=== PATIENT | female | born 1990 | race Two or more races ===

== ENCOUNTER 2025-06-18 13:43 | Emergency (ER) | payer OTHER ==
[~2025-06-18] VITALS: Ht 172.7 cm; Wt 83.9 kg
[~2025-06-18 13:43] MED LIST: ADULT LOW DOSE81 M1; FOLIC ACID20 MG PO
[2025-06-18 15:21] VITALS: BP 107/71; O2SAT 98
[2025-06-18] MEDS ORDERED: 0.9 % SODIUM CHLORIDE 1,000 ML IV STA (15:45)
[2025-06-18] MEDS ORDERED: FAMOTIDINE/PF 20 MG/2 ML VIAL IV STA (15:46)
[2025-06-18] MEDS ORDERED: ONDANSETRON HCL 2 MG/ML VIAL IV STA (15:46)
[2025-06-18] MEDS ORDERED: DEXAMETHASONE SODIUM PHOSPHATE 4 MG/ML VIAL IV ONE (16:00)
[2025-06-18] MEDS ORDERED: ONDANSETRON HCL 2 MG/ML VIAL ONE (16:37)
[2025-06-18] MEDS ORDERED: DEXAMETHASONE SODIUM PHOSPHATE 4 MG/ML VIAL ONE (16:37)
[2025-06-18] MEDS ORDERED: FAMOTIDINE/PF 20 MG/2 ML VIAL ONE (16:37)
[2025-06-18 17:28] LABS: BASO % 0.3 % (0.1-1.2); EOS # 0.02 (0.04-0.54); EOS % 0.3 % (0.7-7.0); LYMPH # 1.09 (1.18-3.74); LYMPH % 16.4 % (19.3-53.1); MEAN PLATELET VOLUME 9.80 fl (9.4-12.4); MONO # 0.29 (0.24-0.82); MONO % 4.4 % (4.7-12.5); NEUT # 5.19 (1.56-6.13); NEUT % 78.1 % (34.0-71.1); RED CELL DISTRIBUTION WIDTH 13.2 % (11.6-14.4)
[2025-06-18 17:57] LABS: INR 1.0
[2025-06-18 17:58] LABS: URINE APPEARANCE Clear; URINE BILIRRUBIN Negative (NEGATIVE); URINE BLOOD Negative; URINE COLOR Yellow; URINE GLUCOSE Negative (NEGATIVE); URINE KETONE Negative (NEGATIVE); URINE LEUKOCYTE Negative; URINE NITRATE Negative; URINE PROTEIN Negative (NEGATIVE); URINE UROBILINOGEN 0.2 E.U./dl
[2025-06-18 18:03] LABS: BUN CREA RATIO 11.0 (7.0-25.0); CREATININE SERUM 0.66 mg/dL (0.55-1.02); GFR 101.33; GLUCOSE FASTING 122.0 mg/dL (65-100); OSMOLALITY SERUM 281.0 MOSM/KG (275-295)
[2025-06-18 18:04] LABS: URINE BACTERIA 392.3 uL (0.0-1933); URINE EPITHELIAL CELLS 20.0 uL (0.0-38.8); URINE RBC 2.9 uL (0.0-20.8); URINE WBC 13.6 uL (0.0-23.2)
[2025-06-18 18:11] LABS: URINE CAST 0.14 uL (0.0-1.40)
[2025-06-18] MEDS ORDERED: ANTIVERT25 M2 PO (18:42)
== END 2025-06-18 22:39 | disposition home or self-care (01) ==
LOC: ER 13:43
PROVIDERS: General Practice
DX: R42 Dizziness and giddiness (principal)